=== PATIENT | female | born 1990 | race Caucasian/White ===

== ENCOUNTER → 2019-04-08 | Outpatient (CLI) | payer SELFPAY ==
[~2019-04-08] MED LIST: ACET500C OR; COLA100C2 OR; IBUP800T OR; PRENTAB8 PO; lanolin cream
--- NOTE | 2019-04-08 17:20 | REP ---
Left foot: Four views. History: Injury of the left foot. Findings: Four views of the left foot demonstrate an obliquely oriented fracture through the distal end of the fifth metatarsal with associated soft-tissue swelling. No other fractures seen. Impression: Distal diaphyseal fifth metatarsal fracture. Electronically Signed by Sam Castillo MD 04/08/2019 05:11 P
== END ==
LOC: M LRY 16:44
PROVIDERS: ATTEND Physician Assistant
DX: S99.922A Unspecified injury of left foot, initial encounter (principal); W18.30XA Fall on same level, unspecified, initial encounter; Y92.009 Unspecified place in unspecified non-institutional (private) residence as the place of occurrence of the external cause

== ENCOUNTER 2019-07-05 17:47 | Inpatient (IN) | payer BC, SELFPAY ==
[~2019-07-05] VITALS: Ht 170.2 cm; Wt 85.4 kg
[2019-07-05 18:45] LABS: BASO # 0.1 10^3/uL (0.0-0.2); BASO % 0.2 % (0.0-1.0); HEMOGLOBIN 13.4 g/dl (12.0-15.5); LYMPH # 1.3 10^3/uL (1.5-5.0); LYMPH % 5.8 % (24.0-44.0); MEAN CORPUSCULAR HEMOGLOBIN 27.3 pg (27.0-33.0); MEAN CORPUSCULAR HGB CONC 32.7 g/dl (32.0-36.5); MEAN CORPUSCULAR VOLUME 83.7 fl (80.0-96.0); MONO # 1.4 10^3/uL (0.0-0.8); MONO % 6.2 % (0.0-5.0); NEUTROPHILS # 18.9 10^3/uL (1.5-8.5); NEUTROPHILS % 87.1 % (36.0-66.0); PLATELET COUNT, AUTOMATED 297 10^3/uL (150-450); WHITE BLOOD COUNT 21.7 10^3/uL (4.0-10.0)
[2019-07-05] MEDS ORDERED: MORPHINE 2 MG/ML 1ML VIAL (J2270) IV ONE (18:45)
[2019-07-05] MEDS ORDERED: ONDANSETRON 4MG/2ML VIAL (J2405) IV ONE (18:45)
[2019-07-05] MEDS ORDERED: NS 1,000 ML IV ONE ×2 (18:45→21:15)
[2019-07-05 19:02] LABS: ALBUMIN 3.5 GM/DL (3.2-5.2); ALT/SGPT 109 U/L (12-78); BILIRUBIN,DIRECT 0.3 MG/DL (0.0-0.2); BILIRUBIN,TOTAL 0.7 MG/DL (0.2-1.0); BLOOD UREA NITROGEN 11 MG/DL (7-18); CALCIUM LEVEL 8.7 MG/DL (8.5-10.1); CARBON DIOXIDE LEVEL 24 MEQ/L (21-32); CHLORIDE LEVEL 100 MEQ/L (98-107); CREATININE FOR GFR 1.32 MG/DL (0.55-1.30); GLUCOSE, FASTING 116 MG/DL (70-100); LIPASE 42 U/L (73-393); POTASSIUM SERUM 3.7 MEQ/L (3.5-5.1); SODIUM LEVEL 133 MEQ/L (136-145); TOTAL PROTEIN 7.5 GM/DL (6.4-8.2)
[2019-07-05 19:18] LABS: HCG, SERUM QUALITATIVE NEGATIVE (NEGATIVE)
[2019-07-05] MEDS ORDERED: MIRE1IUD IU (19:34)
--- NOTE | 2019-07-05 20:17 | REPVR ---
PROCEDURE INFORMATION: Exam: US Abdomen Limited, Right Upper Quadrant Exam date and time: 07/05/2019 7:30 PM Age: 28 years old Clinical indication: Abdominal pain; Flank; Right; Additional info: Ruq, right flank, elev enzymes TECHNIQUE: Imaging protocol: Real-time ultrasound of the abdomen with image documentation. Examination was focused on the right upper quadrant. COMPARISON: No relevant prior studies available. FINDINGS: Liver: Right lobe of the liver measures 19 cm in length which is enlarged. Gallbladder: There are no calculi in the gallbladder nor wall thickening or sonographic Chisholm sign. Common bile duct: The common bile duct is not dilated measuring 4.1 mm. Pancreas: The portion of the pancreas visualized is unremarkable. It is partially obscured by bowel gas. Right kidney: Right kidney measures 12.8 cm in length. No significant hydronephrosis. IMPRESSION: 1. No significant right hydronephrosis. No shadowing renal calculi are apparent. 2. No evidence of cholelithiasis and/or cholecystitis. 3. Mild hepatomegaly. Electronically signed by: Marsha Cervantes On 07/05/2019 20:17:25 PM
--- NOTE | 2019-07-05 20:25 | REPVR ---
PROCEDURE INFORMATION: Exam: CT Abdomen And Pelvis Without Contrast Exam date and time: 07/05/2019 7:30 PM Age: 28 years old Clinical indication: Abdominal pain; Localized; Right; Additional info: Right sided flank pain, into rlq TECHNIQUE: Imaging protocol: Computed tomography of the abdomen and pelvis without contrast. Radiation optimization: All CT scans at this facility use at least one of these dose optimization techniques: automated exposure control; mA and/or kV adjustment per patient size (includes targeted exams where dose is matched to clinical indication); or iterative reconstruction. COMPARISON: US Abdomen 07/05/2019 7:24 PM FINDINGS: Lungs: There are no lesions of the lung bases. Liver: There is hepatomegaly right lobe measuring 20 cm in length. Gallbladder and bile ducts: The gallbladder is normal. Pancreas: Pancreas is unremarkable. Spleen: Mild splenomegaly with length of 13 cm. Adrenals: Adrenal glands are unremarkable. Kidneys and ureters: Left kidney is unremarkable. The right kidney is not well assessed but there may be mild hydronephrosis and there is right mild hydroureter. No calculi are seen in the right ureter in nor other intrarenal calculi. Stomach and bowel: There is no evidence of intestinal obstruction. Appendix: Probable appendectomy. Intraperitoneal space: Unremarkable. No free air. No significant fluid collection. Vasculature: The aorta is normal. Lymph nodes: There are extensive primarily subcentimeter mesenteric lymph nodes. Bladder: The bladder is unremarkable. Reproductive: IUD is seen in the uterus. Ovaries are unremarkable. Bones/joints: Unremarkable. No acute fracture. Soft tissues: Unremarkable. IMPRESSION: 1. The fat in the right renal pelvis is partially obscured which can be seen with edema or inflammation and there may be mild hydronephrosis. There is mild dilatation of the proximal right ureter but no calculus is apparent. There could potentially be pyelonephritis however this cannot be evaluated on noncontrast CT. 2. Hepatic splenomegaly. 3. Extensive mesenteric lymph nodes which can be seen with adenitis. The largest node measures 1.7 cm. Electronically signed by: Marsha Cervantes On 07/05/2019 20:25:08 PM
[2019-07-05 20:46] LABS: MONO REFLEX EBV COMP NEGATIVE (NEGATIVE)
[2019-07-05] MEDS ORDERED: cefTRIAXone SOD 1 GM in D5W MINI-BAG PLUS 50 ML IV ONE (21:15)
[2019-07-05] MEDS ORDERED: ACETAMINOPHEN 325 MG TAB PO ONE (21:30)
[2019-07-05] MEDS ORDERED: MAALOX 30 ML SUSP *UDC PO PRN (23:00)
[2019-07-05] MEDS ORDERED: MOM 30ML SUSPENSION UDC PO PRN (23:00)
--- NOTE | 2019-07-05 23:49 | REPVR ---
PROCEDURE INFORMATION: Exam: US Retroperitoneal Limited, Kidneys Exam date and time: 07/05/2019 11:15 PM Age: 28 years old Clinical indication: Abdominal pain; Flank; Right; Additional info: Stephon TECHNIQUE: Imaging protocol: Real-time ultrasound of the retroperitoneum with image documentation. Examination was focused on the kidneys. COMPARISON: US Abdomen 07/05/2019 7:24 PM FINDINGS: Right kidney: Heterogeneously echogenic. No stones. No hydronephrosis. Left kidney: No stones. No hydronephrosis. Bladder: No definite bladder wall thickening. Ureteral jets not identified. IMPRESSION: Heterogeneously echogenic right kidney, concerning for pyelonephritis. Correlate with urinalysis. Electronically signed by: Jose Quintero On 07/05/2019 23:49:35 PM
[2019-07-05] MEDS: LR 1,000 ML IV SCH (23:54)
--- NOTE | 2019-07-06 03:09 | HPEPDOC ---
[facility] Medical History & Physical Date of Admission Jul 05, 2019 Date of Service: Jul 05, 2019 Attending Physician: DANIAL HIGH MD History and Physical TIME OF SERVICE: 10:20 PM CHIEF COMPLAINT: Flank pain HISTORY OF PRESENT ILLNESS: This is a 28-year-old female who was sent from the urgent care Center for evaluation of one day in duration 08/02 in severity, right-sided flank and back pain that is associated with fever, chills, and dark urine. She denies having nausea or vomiting. At home her temperature was as high as 102. Her last BM was yesterday, while her last menstrual period was on the june. REVIEW OF SYSTEMS: 12 point review of systems negative except as listed in HPI PAST MEDICAL/ SURGICAL HISTORY: Asthma, not on medications Her CT hepatomegaly History of UTIs Tonsillectomy Adenoidectomy SOCIAL HISTORY: She doesn't smoke FAMILY HISTORY: Diabetes ALLERGIES: Please see below. HOME MEDICATIONS: Please see below. Vital Signs Date Time Temp Pulse Resp B/P (MAP) Pulse Ox O2 Delivery O2 Flow Rate FiO2 07/05/19 17:48 99.6 146 18 126/77 (93) 100 Room Air PHYSICAL EXAMINATION: GEN: well-nourished / well developed/ NAD INTEGUMENT: flushed HEENT: NCAT mucus membranes slightly dry CVS: Tachycardic/NMRG/ radial pulses intact LUNGS: lungs are clear to auscultation bilaterally on room air ABDOMEN: Contour (flat) / soft & tender with palpation NEURO: speech is not dysarthric PSYCH: alert and oriented to person place and time/ able to understand and follow all commands LABORATORY DATA: Lactic Acid Level 1.7 Glomerular Filtration Rate 51.0L, Calcium Level 8.7, Total Bilirubin 0.7, Direct Bilirubin 0.3H, Aspartate Amino Transf (AST/SGOT) 58H, Alanine Aminotransferase (ALT/SGPT) 109H, Alkaline Phosphatase 149H, Total Protein 7.5, Albumin 3.5, Albumin/Globulin Ratio 0.88L, Lipase 42L, Human Chorionic Gonadotropin, Qual NEGATIVE, Monoscreen NEGATIVE Urine Color YELLOW, Urine Appearance HAZY, Urine pH 5.0, Urine Specific [place] 1.005, Urine Protein 1+H, Urine Glucose (UA) NEGATIVE, Urine Ketones 1+H, Urine Blood 1+H, Urine Nitrite NEGATIVE, Urine Bilirubin NEGATIVE, Urine Urobilinogen 0.2, Urine Leukocyte Esterase 2+H, Urine WBC (Auto) 30H, Urine RBC (Auto) 5H, Urine Bacteria (Auto) 3+H, Urine Squamous Epithelial Cells 0, Urine Transitional Epithelial Cells 2, Urine Sperm (Auto) NONE IMAGING: Liver ultrasound "IMPRESSION: 1. No significant right hydronephrosis. No shadowing renal calculi are apparent. 2. No evidence of cholelithiasis and/or cholecystitis. 3. Mild hepatomegaly. " CT abdomen and pelvis "IMPRESSION: 1. The fat in the right renal pelvis is partially obscured which can be seen with edema or inflammation and there may be mild hydronephrosis. There is mild dilatation of the proximal right ureter but no calculus is apparent. There could potentially be pyelonephritis however this cannot be evaluated on noncontrast CT. 2. Hepatic splenomegaly. 3. Extensive mesenteric lymph nodes which can be seen with adenitis. The largest node measures 1.7 cm. " Renal US "IMPRESSION: Heterogeneously echogenic right kidney, concerning for pyelonephritis. Correlate with urinalysis. " MICROBIOLOGY: Please see below. ASSESSMENT: Ms. Prasad is a 28-year-old with a history of asthma and newly diagnosed hepatosplenomegaly who is admitted for management of sepsis secondary to pyelonephritis and CELSO. PLAN: 1. Sepsis secondary to pyelonephritis SIRS criteria include fever, tachycardia and leukocytosis. She also has coexisting CELSO Qsofa score = 0 = not high risk Received IV fluids and Rocephin in the ER Plan: admit to PCU / telemetry / switch from NS to LR /f/u blood cx, UA w Cx / c/w Rocephin / Acetaminophen PRN for fever / target MAP 65 to 70 / f/u Is and Os with target UOP of at least 0.5 ml/kg/H / target serum glucose 140-180 while acutely ill 2. Acute Renal Failure. Likely due to combination of infection and excessive ibuprofen use Plan: Is/Os, daily weights / IVF / f/u ulytes for FENa / avoid NSAIDs 3. Transaminitis Since LFTs are in the 100s, this may be due to viral hepatitis Plan: trend LFTs / f/u GGT, Hepatitis panel DVT PROPHYLAXIS: Lovenox DISPOSITION: Likely home after more than 2 midnight's stay Laboratory Data Microbiology Microbiology 07/05/19 Urine Culture, Received Pending 07/05/19 Blood Culture, Received Pending 07/05/19 Blood Culture, Received Pending Home Medications Scheduled Levonorgestrel (Mirena) 1 Each Iud, 20 MCG IU ASDIRECTED Allergies Coded Allergies: No Known Allergies (Verified , 02/08/06) A-FIB/CHADSVASC A-FIB History Current/History of A-Fib/PAF?: No Current PO Anticoag Therapy: No DANIAL HIGH MD Jul 06, 2019 03:09
[2019-07-06 03:15] VITALS: BP 128/73
[2019-07-06 06:02] LABS: HEMATOCRIT 34.1 % (36.0-47.0); MEAN CORPUSCULAR HEMOGLOBIN 27.8 pg (27.0-33.0); MEAN CORPUSCULAR HGB CONC 33.1 g/dl (32.0-36.5); MEAN CORPUSCULAR VOLUME 83.8 fl (80.0-96.0); PLATELET COUNT, AUTOMATED 217 10^3/uL (150-450); RED BLOOD COUNT 4.07 10^6/uL (4.00-5.40)
[2019-07-06 06:32] LABS: HEMOGLOBIN 11.3 g/dl (12.0-15.5)
[2019-07-06 06:43] LABS: BLOOD UREA NITROGEN 8 MG/DL (7-18); CREATININE FOR GFR 0.91 MG/DL (0.55-1.30); GLUCOSE, FASTING 103 MG/DL (70-100)
[2019-07-06 06:44] LABS: ALBUMIN 2.6 GM/DL (3.2-5.2); ALT/SGPT 67 U/L (12-78); BILIRUBIN,TOTAL 0.7 MG/DL (0.2-1.0); CALCIUM LEVEL 7.8 MG/DL (8.5-10.1); CARBON DIOXIDE LEVEL 24 MEQ/L (21-32); CHLORIDE LEVEL 108 MEQ/L (98-107); GLOMERULAR FILTRATION RATE > 60.0 (>60); MAGNESIUM LEVEL 1.8 MG/DL (1.8-2.4); POTASSIUM SERUM 3.8 MEQ/L (3.5-5.1); SODIUM LEVEL 139 MEQ/L (136-145); TOTAL PROTEIN 5.7 GM/DL (6.4-8.2)
[2019-07-06] MEDS: ACETAMINOPHEN TAB 650MG DOSE (2X325MG) PO PRN ×3 (07:51→19:16)
[2019-07-06] MEDS: LR 1,000 ML IV SCH ×2 (07:56→16:51)
[2019-07-06] MEDS: ENOXAPARIN 40 MG/0.4 ML SYRINGE (J1650) SC SCH (08:14)
[2019-07-06] MEDS: CEFEPIME HCL 2 GM in D5W 50 ML IV SCH ×2 (08:14→20:56)
[2019-07-06 08:36] LABS: HEPATITIS B SURFACE ANTIGEN NEGATIVE (NEGATIVE)
[2019-07-06 08:54] VITALS: BP 117/67
[2019-07-06 09:02] LABS: HEPATITIS B CORE ANTIBODY IGM NEGATIVE (NEGATIVE); HEPATITIS C VIRUS ABY INDEX < 0.0 INDEX (<0.8)
[2019-07-06 09:06] LABS: HEPATITIS A ANTIBODY IGM NEGATIVE (NEGATIVE)
[2019-07-06 11:14] VITALS: BP_SYST 140; BP_SYST 146; BP_DIAS 79; BP_DIAS 80
--- NOTE | 2019-07-06 14:09 | IPNPDOC ---
Subjective Date Seen The patient was seen on 07/06/19. Subjective Chief Complaint/HPI Airam is feeling ill, she's tolerating some liquids but continues to spike temperature over night. Her back pain is present but not as severe Objective Physical Examination General Exam: Positive: Alert, Moderate Distress, Other (looks acutely ill with sunken eyes, and malaise) Eye Exam: Positive: Conjunctiva & lids normal; Negative: Sclera icteric ENT Exam: Positive: Atraumatic, Pharynx Normal Neck Exam: Positive: Supple Chest Exam: Positive: Clear to auscultation Heart Exam: Positive: Tachycardic Female Exam: Positive: Tenderness (right CVA tenderness to palpation) Extremity Exam: Negative: Clubbing, Cyanosis, Edema Skin Exam: Negative: Rash Neuro Exam: Positive: Normal Speech Psych Exam: Positive: Mental status NL, Memory Intact, Oriented x 3 Assessment /Plan Assessment # Right renal pyelonephritis with sepsis - continue cefepime, WBC trending lower - IVFs - pain control - await U.cx results # CELSO likely due to infection and nsaid - resolved # Transaminitis - resolved - viral panel pending # DVT PROPHYLAXIS - Lovenox DISPOSITION: home likely Tuesday Plan/VTE VTE Prophylaxis Ordered?: Yes VS, I&O, 24H, Fishbone Vital Signs/I&O Vital Signs Date Time Temp Pulse Resp B/P (MAP) Pulse Ox O2 Delivery O2 Flow Rate FiO2 07/06/19 12:00 102.5 07/06/19 11:14 122 18 140/80 (100) 100 Room Air I&O- Last 24 Hours up to 6 AM 07/06/19 06:00 Intake Total 2050 ml Output Total 500 ml Balance 1550 ml Laboratory Data 24H LABS Laboratory Tests 2 07/05/19 18:24: Lactic Acid Level 1.7 07/05/19 18:25: Immature Granulocyte % (Auto) 0.7, Neutrophils (%) (Auto) 87.1H, Lymphocytes (%) (Auto) 5.8L, Monocytes (%) (Auto) 6.2H, Eosinophils (%) (Auto) 0.0, Basophils (%) (Auto) 0.2, Neutrophils # (Auto) 18.9H, Lymphocytes # (Auto) 1.3L, Monocytes # (Auto) 1.4H, Eosinophils # (Auto) 0.0, Basophils # (Auto) 0.1, Nucleated Red Blood Cells % (auto) 0.0, Anion Gap 9, Glomerular Filtration Rate 51.0L, Calcium Level 8.7, Total Bilirubin 0.7, Direct Bilirubin 0.3H, Aspartate Amino Transf (AST/SGOT) 58H, Alanine Aminotransferase (ALT/SGPT) 109H, Alkaline Phosphatase 149H, Total Protein 7.5, Albumin 3.5, Albumin/Globulin Ratio 0.88L, Lipase 42L, Human Chorionic Gonadotropin, Qual NEGATIVE, Hepatitis A IgM Antibody NEGATIVE, Hepatitis B Surface Antigen NEGATIVE, Hepatitis B Core IgM Antibody NEGATIVE, Hepatitis C Antibody Index < 0.0, Monoscreen NEGATIVE 07/05/19 20:52: Urine Color YELLOW, Urine Appearance HAZY, Urine pH 5.0, Urine Specific [place] 1.005, Urine Protein 1+H, Urine Glucose (UA) NEGATIVE, Urine Ketones 1+H, Urine Blood 1+H, Urine Nitrite NEGATIVE, Urine Bilirubin NEGATIVE, Urine Urobilinogen 0.2, Urine Leukocyte Esterase 2+H, Urine WBC (Auto) 30H, Urine RBC (Auto) 5H, U rine Bacteria (Auto) 3+H, Urine Squamous Epithelial Cells 0, Urine Transitional Epithelial Cells 2, Urine Sperm (Auto) NONE 07/06/19 05:28: Nucleated Red Blood Cells % (auto) 0.0, Anion Gap 7L, Glomerular Filtration Rate > 60.0, Calcium Level 7.8L, Total Bilirubin 0.7, Aspartate Amino Transf (AST/SGOT) 23, Alanine Aminotransferase (ALT/SGPT) 67, Alkaline Phosphatase 112, Total Protein 5.7#L, Albumin 2.6#L, Albumin/Globulin Ratio 0.84L, Magnesium Level 1.8, Gamma Glutamyl Transferase 59H CBC/BMP Laboratory Tests 07/05/19 18:25 07/06/19 05:28 Microbiology Microbiology 07/05/19 Urine Culture, Received Pending 07/05/19 Blood Culture, Received Pending 07/05/19 Blood Culture, Received Pending JOCELYNE SARGENT MD Jul 06, 2019 14:09
[2019-07-06 15:42] VITALS: BP 137/81
[2019-07-06 20:00] VITALS: BP 134/79
[2019-07-07] VITALS (7 sets, daily range): BP systolic 133–160; BP diastolic 67–88
[2019-07-07] MEDS: ACETAMINOPHEN TAB 650MG DOSE (2X325MG) PO PRN ×2 (00:57→17:25)
[2019-07-07] MEDS ORDERED: ONDANSETRON 4 MG TAB (S0181) PO PRN (01:15)
[2019-07-07] MEDS: LR 1,000 ML IV SCH ×2 (01:47→08:37)
[2019-07-07] MEDS: ENOXAPARIN 40 MG/0.4 ML SYRINGE (J1650) SC SCH (08:37)
[2019-07-07 08:46] LABS: HEMATOCRIT 31.1 % (36.0-47.0); HEMOGLOBIN 10.5 g/dl (12.0-15.5); MEAN CORPUSCULAR HEMOGLOBIN 27.6 pg (27.0-33.0); MEAN CORPUSCULAR HGB CONC 33.8 g/dl (32.0-36.5); MEAN CORPUSCULAR VOLUME 81.8 fl (80.0-96.0); PLATELET COUNT, AUTOMATED 222 10^3/uL (150-450); WHITE BLOOD COUNT 9.7 10^3/uL (4.0-10.0)
[2019-07-07] MEDS ORDERED: cefTRIAXone SOD 2 GM in D5W MINI-BAG PLUS 50 ML IV SCH (09:00)
[2019-07-07 09:04] LABS: BLOOD UREA NITROGEN 6 MG/DL (7-18); CALCIUM LEVEL 7.9 MG/DL (8.5-10.1); CARBON DIOXIDE LEVEL 25 MEQ/L (21-32); CHLORIDE LEVEL 107 MEQ/L (98-107); CREATININE FOR GFR 0.71 MG/DL (0.55-1.30); GLOMERULAR FILTRATION RATE > 60.0 (>60); GLUCOSE, FASTING 102 MG/DL (70-100); POTASSIUM SERUM 3.2 MEQ/L (3.5-5.1); SODIUM LEVEL 137 MEQ/L (136-145)
[2019-07-07] MEDS ORDERED: IBUPROFEN 400 MG TAB PO PRN (10:15)
--- NOTE | 2019-07-07 10:28 | IPNPDOC ---
Subjective Date Seen The patient was seen on 07/07/19. Subjective Chief Complaint/HPI Airam's appetite continues to be poor, her pain is better but still present, she feels marginally better and continues to be intermittently febrile. C/o PADRON not controlled with Tylenol Objective Physical Examination General Exam: Positive: Alert, Mild Distress, Other (looks ill) Eye Exam: Positive: Conjunctiva & lids normal; Negative: Sclera icteric ENT Exam: Positive: Atraumatic, Pharynx Normal Neck Exam: Positive: Supple Chest Exam: Positive: Clear to auscultation Heart Exam: Positive: Rate Normal Abdomen Exam: Positive: Normal bowel sounds, Soft; Negative: Tenderness Female Exam: Positive: Tenderness (right CVA tenderness to palpation) Extremity Exam: Negative: Clubbing, Cyanosis, Edema Skin Exam: Negative: Rash Neuro Exam: Positive: Normal Speech Psych Exam: Positive: Mental status NL, Memory Intact, Oriented x 3 Assessment /Plan Assessment # Right renal pyelonephritis with E.coli sepsis - discontinue cefepime, WBC has normalized - u.cx + e.coli (mustafa-sensitive), b.cx no growth to date - decrease IVF rate 60/ml - pain control - transfer to med/surg floor # Headache - motrin 400 mg po q6 prn # CELSO likely due to infection and nsaid - resolved # Transaminitis - resolved - viral panel normal - EBV panel pending # DVT PROPHYLAXIS - Lovenox DISPOSITION: home likely Tuesday/Tuesday depending on ability to take PO Plan/VTE VTE Prophylaxis Ordered?: Yes VS, I&O, 24H, Fishbone Vital Signs/I&O Vital Signs Date Time Temp Pulse Resp B/P (MAP) Pulse Ox O2 Delivery O2 Flow Rate FiO2 07/07/19 08:54 100.3 07/07/19 08:00 87 18 139/86 (103) 99 Room Air I&O- Last 24 Hours up to 6 AM 07/07/19 06:00 Intake Total 3030 ml Output Total 1525 ml Balance 1505 ml Laboratory Data 24H LABS Laboratory Tests 2 07/07/19 08:12: Nucleated Red Blood Cells % (auto) 0.0, Anion Gap 5L, Glomerular Filtration Rate > 60.0, Calcium Level 7.9L CBC/BMP Laboratory Tests 07/07/19 08:12 Microbiology Microbiology 3/12/20 Urine Culture - Final, Complete Escherichia Coli 07/05/19 Blood Culture - Preliminary, Resulted No growth after 24 hours . All specim... 07/05/19 Blood Culture - Preliminary, Resulted No growth after 24 hours . All specim... JOCELYNE SARGENT MD Jul 07, 2019 10:28
[2019-07-07] MEDS ORDERED: POTASSIUM CHLORIDE 10% LIQ 20 MEQ/15 ML UDC PO ONE (11:00)
[2019-07-07 15:06] LABS: EBV AB TO NUCLEAR ANTIGEN 25.2 U/mL (0.0-17.9); EBV VIRAL CAPSID AG IgG >600.0 U/mL (0.0-17.9); EBV VIRAL CAPSID AG IgM <36.0 U/mL (0.0-35.9)
[2019-07-08] MEDS: LR 1,000 ML IV SCH (00:19)
[2019-07-08] MEDS: ACETAMINOPHEN TAB 650MG DOSE (2X325MG) PO PRN (00:43)
[2019-07-08 06:00] VITALS: BP 120/70
[2019-07-08] MEDS ORDERED: LevoFLOXacin 750 MG TABLET PO SCH (06:00)
[2019-07-08 07:02] LABS: BASO # 0.1 10^3/uL (0.0-0.2); BASO % 0.8 % (0.0-1.0); EOS # 0.1 10^3/uL (0.0-0.5); EOS % 1.6 % (0.0-3.0); HEMATOCRIT 30.7 % (36.0-47.0); HEMOGLOBIN 10.3 g/dl (12.0-15.5); LYMPH # 2.1 10^3/uL (1.5-5.0); MEAN CORPUSCULAR HEMOGLOBIN 27.6 pg (27.0-33.0); MEAN CORPUSCULAR HGB CONC 33.6 g/dl (32.0-36.5); MEAN CORPUSCULAR VOLUME 82.3 fl (80.0-96.0); MONO # 0.9 10^3/uL (0.0-0.8); MONO % 11.6 % (0.0-5.0); NEUTROPHILS # 4.5 10^3/uL (1.5-8.5); NEUTROPHILS % 58.6 % (36.0-66.0); PLATELET COUNT, AUTOMATED 226 10^3/uL (150-450); RED BLOOD COUNT 3.73 10^6/uL (4.00-5.40); WHITE BLOOD COUNT 7.6 10^3/uL (4.0-10.0)
[2019-07-08 07:23] LABS: BLOOD UREA NITROGEN 6 MG/DL (7-18); CARBON DIOXIDE LEVEL 28 MEQ/L (21-32); CHLORIDE LEVEL 104 MEQ/L (98-107); CREATININE FOR GFR 0.63 MG/DL (0.55-1.30); GLOMERULAR FILTRATION RATE > 60.0 (>60); GLUCOSE, FASTING 90 MG/DL (70-100); POTASSIUM SERUM 3.2 MEQ/L (3.5-5.1); SODIUM LEVEL 135 MEQ/L (136-145)
[2019-07-08] MEDS ORDERED: LEVA750T7 PO (08:30)
--- NOTE | 2019-07-08 08:36 | IPNPDOC ---
Subjective Date Seen The patient was seen on 07/08/19. Subjective Chief Complaint/HPI Tolerating PO, fevers are improving. Feels alot better. Objective Physical Examination General Exam: Positive: Alert, Cooperative, No Acute Distress Eye Exam: Positive: Conjunctiva & lids normal; Negative: Sclera icteric ENT Exam: Positive: Atraumatic, Pharynx Normal Neck Exam: Positive: Supple Chest Exam: Positive: Clear to auscultation Heart Exam: Positive: Rate Normal Abdomen Exam: Positive: Normal bowel sounds, Soft; Negative: Tenderness Extremity Exam: Negative: Clubbing, Cyanosis, Edema Skin Exam: Negative: Rash Neuro Exam: Positive: Normal Speech Psych Exam: Positive: Mental status NL, Memory Intact, Oriented x 3 Assessment /Plan Assessment Right renal pyelonephritis with E.coli sepsis - discontinue cefepime, WBC has normalized - u.cx + e.coli (mustafa-sensitive), b.cx no growth to date - home today - levaquin 750 mg po daily x 7 days - f/u with pcp - give oral dose prior to leaving # Headache - motrin 400 mg po q6 prn # CELSO likely due to infection and nsaid - resolved # Transaminitis - resolved - viral panel normal - EBV panel pending # DVT PROPHYLAXIS - Lovenox Plan/VTE VTE Prophylaxis Ordered?: Yes VS, I&O, 24H, Fishbone Vital Signs/I&O Vital Signs Date Time Temp Pulse Resp B/P (MAP) Pulse Ox O2 Delivery O2 Flow Rate FiO2 07/08/19 06:00 98.3 80 17 120/70 (87) 97 Room Air I&O- Last 24 Hours up to 6 AM 07/08/19 06:00 Intake Total 4830 ml Output Total 2400 ml Balance 2430 ml Laboratory Data 24H LABS Laboratory Tests 2 07/08/19 06:31: Immature Granulocyte % (Auto) 0.4, Neutrophils (%) (Auto) 58.6, Lymphocytes (%) (Auto) 27.0, Monocytes (%) (Auto) 11.6H, Eosinophils (%) (Auto) 1.6, Basophils (%) (Auto) 0.8, Neutrophils # (Auto) 4.5, Lymphocytes # (Auto) 2.1, Monocytes # (Auto) 0.9H, Eosinophils # (Auto) 0.1, Basophils # (Auto) 0.1, Nucleated Red Blood Cells % (auto) 0.0, Anion Gap 3L, Glomerular Filtration Rate > 60.0, Calcium Level 8.0L CBC/BMP Laboratory Tests 07/08/19 06:31 Microbiology Microbiology 07/05/19 Urine Culture - Final, Complete Escherichia Coli 07/05/19 Blood Culture - Preliminary, Resulted No Growth after 48 hours. All Specime... 07/05/19 Blood Culture - Preliminary, Resulted No Growth after 48 hours. All Specime... JOCELYNE SARGENT MD Jul 08, 2019 08:36
[2019-07-08] MEDS ORDERED: POTASSIUM CHLORIDE 10 MEQ SR TABLET PO SCH (09:00)
[2019-07-08] MEDS: ENOXAPARIN 40 MG/0.4 ML SYRINGE (J1650) SC SCH (09:00)
--- NOTE | 2019-07-08 22:32 | DSES ---
DATE OF ADMISSION: 07/05/2019 DATE OF DISCHARGE: 07/08/2019 DISCHARGE DIAGNOSES: Are the followin. Acute right renal pyelonephritis with Escherichia (E) coli sepsis. 2. Headache. 3. Acute kidney injury secondary to nonsteroidal anti-inflammatory drug (NSAID) use, resolved. 4. Transaminitis secondary to poor by mouth intake. 5. Previous Sveta Montero virus infection. PROCEDURES PERFORMED DURING THIS HOSPITALIZATION: None. CONSULTANTS ON THE CASE: None. DISPOSITION: Patient is discharged home. DISCHARGE INSTRUCTIONS: Patient is instructed to take Levaquin 750 mg by mouth daily for the next 7 days. She is to monitor for any persistent fevers, nausea, vomiting, or worsening right flank pain. She is to followup with her primary care provider (PCP) in approximately 1 week's time. CONDITION ON DISCHARGE: Improved from admission. RELEVANT LABORATORIES: Are the following: White blood cell count on admission had been 21,000, it has normalized to 7600, hemoglobin 10.3, hematocrit 30.7, platelet counts 226, sodium 135, potassium 3.3, chloride 104, bicarbonate 28, anion gap 3, BUN 6, creatinine 0.63, calcium 8, total bilirubin on admission was 0.7, GGT was 59, AST 58 and normalized to 23, ALT 109 and normalized to 67, alkaline phosphatase 149 and normalized to 112. Urine hCG was negative. Lipase was 42. Hepatitis panel was negative. Sveta Montero viral capsid antigen IgG antibody was greater than 600, the IgM antibody was not detected. Sveta Montero virus nuclear antigen antibody was 25.2. IMAGING STUDIES: Done during this hospitalization were: Ultrasound of the right upper quadrant which showed no significant right hydronephrosis, no shadowing renal calculi are apparent, no evidence of cholelithiasis or cholecystitis, mild hepatomegaly. CT of the abdomen and pelvis without contrast which showed fat in the right renal pelvis was partially obscured which can be seen with edema or inflammation, there may be mild hydronephrosis, there is mild dilatation of the proximal right ureter but no calculus is apparent, could potentially be pyelonephritis although this cannot be evaluated on noncontrast CT, hepatosplenomegaly, extensive mesenteric lymph nodes which can be seen with adenitis, largest measuring 1.7 cm. Renal ultrasound heterogenous echogenic right kidney concerning for pyelonephritis, correlate with urinalysis. Microbiology showed E. coli growing in the urine which is mustafa sensitive. Blood cultures times three had no growth to date. HOSPITAL COURSE: Airam Prasad is a 28-year-old woman who had presented to the hospital with a primary complaint of right flank pain. She had been seen in the urgent care center and had been referred to the emergency department (ED). In the ED, she was noted to have a temperature of 100.2, a white blood cell count of 21,000. Urinalysis was checked which was grossly abnormal. Imaging studies were done which were concerning for right pyelonephritis. She was started on IV cefepime. She had slightly elevated transaminase levels which prompted the admitting physician to order a right upper quadrant ultrasound which was unremarkable, as well as a viral hepatitis panel which came back normal, as well as Sveta Montero viral panel which showed that she had had a previous infection in the past. With improvement in her primary acute renal infection, her liver transaminases trended down. E. coli ultimately grew in the urine culture, sensitivities indicated it was mustafa sensitive. She was transitioned to IV Rocephin 2 grams with ultimate transition to Levaquin oral at discharge. From my standpoint, patient can be discharged home. She can followup with her PCP. She likely will need re-imaging of her abdomen just to ensure that the enlarged lymph nodes that are noted have resolved with her primary renal infection. DISCHARGE MEDICATIONS: Are the following: - levofloxacin 750 mg by mouth daily for 7 days - levonorgestrel 20 mcg as directed Total of 30 minutes was spent completing all discharge paperwork.
== END 2019-07-08 10:22 | disposition home or self-care (01) | DRG 720 ==
LOC: M ED 17:47 → M ED INP 22:51 → ENRESERV 07-06 01:49 → M PCU 07-06 03:10 → M MSPAV 07-07 13:25
PROVIDERS: ADMIT Internal Medicine; ATTEND Internal Medicine
DX: A41.51 Sepsis due to Escherichia coli [E. coli] (principal); N17.9 Acute kidney failure, unspecified; R16.2 Hepatomegaly with splenomegaly, not elsewhere classified; N10 Acute pyelonephritis; Z87.440 Personal history of urinary (tract) infections; R74.0 Nonspecific elevation of levels of transaminase and lactic acid dehydrogenase [LDH]; T39.395A Adverse effect of other nonsteroidal anti-inflammatory drugs [NSAID], initial encounter; R51 Headache

== ENCOUNTER → 2024-08-27 | Outpatient (CLI) | payer OTHER ==
[~2024-08-27] MED LIST changes: +LEVA750T7 PO; +MIRE1IUD IU
== END ==
LOC: M WHC 07:38
PROVIDERS: ATTEND Obstetrics & Gynecology
DX: N97.9 Female infertility, unspecified (principal)

== ENCOUNTER → 2024-08-27 | Outpatient (CLI) | payer OTHER ==
[2024-08-27 11:49] LABS: PROGESTERONE < 0.21 NG/ML
[2024-08-27 11:50] LABS: FOLLICLE STIMULATING HORMONE 7.1 mIU/ML; FREE T4 1.15 NG/DL (0.89-1.76); LUTEINIZING HORMONE 7.6 mIU/ML; PROLACTIN 13.88 NG/ML
[2024-08-27 11:51] LABS: THYROID STIMULATING HORMONE 1.353 uIU/ML (0.55-4.78)
== END ==
LOC: M PLALAB 08:30
PROVIDERS: ATTEND Obstetrics & Gynecology
DX: N97.9 Female infertility, unspecified (principal)

== ENCOUNTER → 2024-11-29 | Outpatient (REF) | payer OTHER ==
[2024-11-29 17:39] LABS: PLATELET COUNT, AUTOMATED 386 10^3/uL (150-450)
[2024-11-29 18:13] LABS: HIV 1&2 SCREEN NEGATIVE (NEGATIVE)
[2024-11-29 18:21] LABS: HEPATITIS C VIRUS ABY INDEX 0.03 INDEX (<0.8)
[2024-12-03 09:51] LABS: HCG, SERUM QUANTITATIVE 1892.8 MIU/ML (<4.2)
== END ==
LOC: M LAB REF 17:12
PROVIDERS: ATTEND Obstetrics & Gynecology
DX: O36.80X0 Pregnancy with inconclusive fetal viability, not applicable or unspecified (principal)

== ENCOUNTER → 2024-12-28 | Outpatient (CLI) | payer OTHER | LOC: M WHC 09:02 | PROVIDERS: ATTEND Obstetrics & Gynecology | DX: O36.80X0 Pregnancy with inconclusive fetal viability, not applicable or unspecified (principal) ==

== ENCOUNTER → 2024-12-31 | Outpatient (CLI) | payer OTHER | LOC: M PLALAB 10:33 | PROVIDERS: ATTEND Advanced Practice Midwife | DX: O20.9 Hemorrhage in early pregnancy, unspecified (principal); Z3A.00 Weeks of gestation of pregnancy not specified ==

== ENCOUNTER → 2025-01-02 | Outpatient (CLI) | payer OTHER | LOC: M PLALAB 08:15 | PROVIDERS: ATTEND Advanced Practice Midwife | DX: O20.9 Hemorrhage in early pregnancy, unspecified (principal) ==

== ENCOUNTER 2025-01-03 17:45 | Emergency (ER) | payer OTHER ==
[~2025-01-03] VITALS: Ht 170.2 cm; Wt 109.4 kg
[2025-01-03 18:55] LABS: BASO # 0.1 10^3/uL (0.0-0.2); BASO % 0.7 % (0.0-1.0); EOS # 0.3 10^3/uL (0.0-0.5); EOS % 2.5 % (0.0-3.0); LYMPH # 3.3 10^3/uL (1.5-5.0); LYMPH % 32.2 % (24.0-44.0); MONO # 0.8 10^3/uL (0.0-0.8); MONO % 7.6 % (2.0-8.0); NEUTROPHILS # 5.8 10^3/uL (1.5-8.5); NEUTROPHILS % 56.6 % (36.0-66.0); PLATELET COUNT, AUTOMATED 318 10^3/uL (150-450)
[2025-01-03 19:15] LABS: CALCIUM LEVEL 9.1 MG/DL (8.5-10.1); CARBON DIOXIDE LEVEL 26.0 MMOL/L (20-31); CHLORIDE LEVEL 106.0 MMOL/L (98-107); CREATININE FOR GFR 0.91 MG/DL (0.55-1.30); GLOMERULAR FILTRATION RATE 84.9 (>60); POTASSIUM SERUM 3.9 MMOL/L (3.5-5.1); SODIUM LEVEL 142.0 MMOL/L (136-145)
[2025-01-03 19:28] LABS: HCG, SERUM QUANTITATIVE 6286.9 MIU/ML (<4.2)
[2025-01-03] MEDS: NS (Normal Saline) 0.9% 1,000 ML IV ONE (20:51)
[2025-01-03 21:58] VITALS: BP 127/75
[2025-01-03 22:00] VITALS: O2SAT 100
[2025-01-03 22:17] VITALS: TEMP 98.3
== END 2025-01-03 22:22 | disposition home or self-care (01) ==
LOC: M ED 17:45
DX: O03.9 Complete or unspecified spontaneous abortion without complication (principal); J45.909 Unspecified asthma, uncomplicated; Z79.899 Other long term (current) drug therapy

== ENCOUNTER → 2025-01-09 | Outpatient (CLI) | payer OTHER | LOC: M PLALAB 08:20 | PROVIDERS: ATTEND Nurse Practitioner Family | DX: O03.9 Complete or unspecified spontaneous abortion without complication (principal) ==

== ENCOUNTER → 2025-02-20 | Outpatient (CLI) | payer OTHER | LOC: M RAD 08:52 | PROVIDERS: ATTEND Physician Assistant Medical | DX: G43.909 Migraine, unspecified, not intractable, without status migrainosus (principal); H74.8X3 Other specified disorders of middle ear and mastoid, bilateral ==